=== PATIENT | male | born 1990 | race Two or more races ===

== ENCOUNTER → 2019-12-18 05:29 | Emergency (ER) | payer SELFPAY ==
[~2019-12-18] VITALS: Ht 160 cm; Wt 79.4 kg
[~2019-12-18 05:29] MED LIST: IOHEXOL 300 MG/ML 100ML BOTTLE IJ ONE; TETANUS-DIPTH-ACEL PERTUSSIS 0.5ML SYRG IM ONE; cefTRIAXone 1GM/50ML D5W 50 ML IV ONE; cefTRIAXone W LIDOCAINE 1 GM IM IM ONE
[2019-12-18 06:34] LABS: Basophils # (auto) 0.1 uL; Basophils % (auto) 0.5 % (0.0-2.0); Eosinophils # (auto) 0 uL; Eosinophils % (auto) 0.3 % (0.0-7.0); Hematocrit 40.6 % (41.0-53.0); Hemoglobin 13.8 g/dL (13.5-17.5); Lymphocytes # (auto) 1.6 uL; Lymphocytes % (auto) 15.5 % (10.0-50.0); Mean Corpuscular Hemoglobin 30.6 pg (28.0-32.0); Mean Corpuscular Hgb Conc. 33.9 g/dL (32.0-36.0); Mean Corpuscular Volume 90.2 fL (80.0-100.0); Monocytes # (auto) 0.9 uL; Monocytes % (auto) 9.2 % (0.0-12.0); Neutrophils # (auto) 7.7 uL; Neutrophils % (auto) 74.5 % (37.0-80.0); Platelet Count (auto) 276 10^3/uL (140-450); Red Cell Distribution Width 13.7 % (11.8-14.3); White Blood Cell 10.3 10^3/uL (4.4-10.8)
[2019-12-18 06:56] LABS: Alanine Aminotransferase 18 U/L (16-61); Albumin 4.2 g/dL (3.4-5.0); Anion Gap 6 (5-15); Aspartate Aminotransferase 18 U/L (15-37); BUN/Creatinine Ratio 25.3; Blood Alcohol < 3.0 mg/dL (0-5); Blood Urea Nitrogen 20 mg/dL (7-18); Carbon Dioxide 26 mmol/L (21-32); Chloride 107 mmol/L (98-107); GFR African American 151 mL/min; GFR Non-African American 125 mL/min; Glucose 106 mg/dL (74-106); Potassium 4.6 mmol/L (3.5-5.1); Sodium 139 mmol/L (136-145)
[2019-12-18 06:58] LABS: Alkaline Phosphatase 103 U/L (45-117); Bilirubin, Total 0.6 mg/dL (0.2-1.0); Total Protein 7.5 g/dL (6.4-8.2)
[2019-12-18 07:20] VITALS: BP 141/83
== END | disposition home or self-care (01) ==
LOC: ER 05:29
DX: S41.102A Unspecified open wound of left upper arm, initial encounter (principal); S00.85XA Superficial foreign body of other part of head, initial encounter; S00.05XA Superficial foreign body of scalp, initial encounter; W34.00XA Accidental discharge from unspecified firearms or gun, initial encounter; Y93.89 Activity, other specified; Y99.8 Other external cause status; Y92.89 Other specified places as the place of occurrence of the external cause
CPT/HCPCS: 36415; 70450; 71045; 73060; 80053; 80320; 85025; 90471; 90715; 96372; 99284; J0696